=== PATIENT | female | born 1990 | race Caucasian/White ===

== ENCOUNTER 2016-08-26 22:32 | Emergency (ER) | payer OTHER ==
[~2016-08-26 22:32] MED LIST: AUGMENTIN875 M1 PO; CLARITIN10 MG PO; GYNE LOTRIMIN TOP; IBUPROFEN IB100 MG; KETOPROFEN PO; LEXAPRO20 MG PO; MULTI-VITAMIN1 EAC1 PO; NAPROXEN PO; NEXIUM; PHENERGAN PO; PHENERGAN25 MG PO; TRAZODONE; VICODIN PO; VOLTAREN50 MG PO; ZOFRAN PO
[2016-08-26] MEDS ORDERED: BIRTH CONTROL PILL (22:38)
[2016-08-26] MEDS ORDERED: ZOLOFT (22:38)
[2016-08-26] MEDS ORDERED: ESTRACE0.5 MG (22:39)
[2016-08-26 23:40] LABS: URINE SOURCE CLEAN CATCH
[2016-08-26 23:42] LABS: URINE APPEARANCE CLEAR; URINE BILIRUBIN NEG (NEG); URINE BLOOD 2+ (NEG); URINE COLOR YELLOW; URINE GLUCOSE NEG (NORM); URINE KETONE NEG (NEG); URINE LEUKOCYTE ESTERASE NEG (NEG); URINE NITRATE NEG (NEG); URINE PROTEIN NEG (NEG)
[2016-08-26 23:45] LABS: MICRO INDICATED? YES
[2016-08-26 23:49] LABS: CULTURE INDICATED? YES; URINE BACTERIA 3+ (NEG); URINE RBC 25-50 /[HPF] (0-2)
[2016-08-26 23:50] LABS: URINE AMORPHOUS SEDIMENT AMORP URATES; URINE MUCUS PRESENT; URINE SQUAMOUS EPITHELIAL CELL FEW /[HPF]
== END 2016-08-27 01:03 | disposition home or self-care (01) ==
LOC: SED 22:32
PROVIDERS: Physician Assistant
DX: N30.00 Acute cystitis without hematuria (principal); M54.2 Cervicalgia; R51 Headache; Z87.891 Personal history of nicotine dependence
CPT/HCPCS: 81003; 84703; 87086; 96372; 99283; J1885; J2360